=== PATIENT | male | born 1950 | race Caucasian/White ===

== ENCOUNTER 2020-10-03 19:45 | Emergency (ER) | payer OTHER ==
[~2020-10-03] VITALS: Ht 177.8 cm; Wt 73.0 kg
[2020-10-03 20:03] VITALS: BP 121/76
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
[2020-10-03] MEDS ORDERED: LORazepam 0.5 MG TAB PO ONE (20:50)
--- NOTE | 2020-10-03 21:28 | NUR ---
pt refused meds and labs
--- NOTE | 2020-10-03 22:08 | NUR ---
PT REFUSED TO HAVE COVID SWAB DONE
[2020-10-03 23:26] LABS: BARBITURATE, URINE NEGATIVE ng/ml (NEG <=200); BENZODIAZEPINE, URINE NEGATIVE ng/mL (NEG <=200); CANNABINOID, URINE NEGATIVE ng/mL (NEG <=50); COCAINE, URINE NEGATIVE ng/mL (NEG <=300); OPIATE, URINE NEGATIVE ng/mL (NEG <=2000); PHENCYCLIDINE SCREEN,URINE NEGATIVE ng/mL (NEG <=25)
--- NOTE | 2020-10-03 23:39 | NUR ---
Lawson machado in [facility] - 10/04/20 at 0347 by [facility] CALLED TO INFORM THAT PT IS COVID +
--- NOTE | 2020-10-04 00:28 | NUR ---
pt asked again for labs and meds. pt denied and stated "you got piss, use that, id rather ". Addendum: 10/04/20 at 0029 by [facility] pt asked again for labs and meds. pt denied and stated "you got piss, use that, id rather ". reported to vasquez de la garza.
--- NOTE | 2020-10-04 00:30 | NUR ---
PT IN STABLE CONDITION, SITTING IN CHAIR. PT WAS BECOME MORE COMPLIANT WITH CARE. ALL PT NEEDS MET AT THIS TIME.
[2020-10-04 01:55] LABS: BASOPHILS # (AUTO) 0.1 K/uL (0.00-0.22); BASOPHILS % (AUTO) 1.2 % (0.0-2.0); EOSINOPHILS # (AUTO) 0.2 K/uL (0-0.4); EOSINOPHILS % (AUTO) 1.8 % (0.0-4.0); HEMATOCRIT 39.5 % (36-52); LYMPHOCYTES # (AUTO) 0.7 K/uL (2.0-11.5); LYMPHOCYTES % (AUTO) 6.8 % (20.5-51.1); MEAN CORPUSCULAR HEMOGLOBIN 27 pg (27-31); MEAN CORPUSCULAR HGB CONC 33 g/dL (33-37); MEAN CORPUSCULAR VOLUME 82.5 fL (80-94); MONOCYTES # (AUTO) 0.8 K/uL (0.8-1.0); MONOCYTES % (AUTO) 8.1 % (1.7-9.3); NEUTROPHILS # (AUTO) 8.5 K/uL (1.8-7.7); PLATELET COUNT (AUTO) 269 K/uL (140-450); RED BLOOD CELL COUNT(AUTO) 4.78 MIL/uL (4.20-6.10); RED CELL DISTRIBUTION WIDTH 14.6 % (11.6-13.7); WHITE BLOOD COUNT (AUTO) 10.4 K/uL (4.8-10.8)
--- NOTE | 2020-10-04 02:00 | NUR ---
PT IN STABLE CONDITION, EQUAL RISE AND FALL OF CHEST WALL. PT IS SITTING IN CHAIR. PT STATED HE WOULD LIKE A BED, EXPLAINED TO PT THAT SOON WE GET A GURNEY HE WILL BE MOVED.
[2020-10-04 02:16] LABS: ANION GAP 12.6 (8-16); CARBON DIOXIDE 24.6 mmol/L (21-32); CHLORIDE 99 mmol/L (98-107); CREATININE 1.8 mg/dL (0.6-1.3); GLUCOSE 215 mg/dL (74-106); POTASSIUM 4.2 mmol/L (3.5-5.1); SODIUM SERUM 132 mmol/L (136-145); UREA NITROGEN, BLOOD 36 mg/dL (7-18)
[2020-10-04 02:23] LABS: ALBUMIN 4.1 g/dL (3.4-5.0); ASPARTATE AMINOTRANSFERASE 16 U/L (15-37); TOTAL BILIRUBIN 0.6 mg/dL (0.0-1.0)
[2020-10-04 02:24] LABS: ACETAMINOPHEN < 0.5 ug/ml (10-30); SALICYLATE < 2.8 mg/dL (2.8-20.0)
[2020-10-04 02:48] LABS: NEUTROPHILS % (AUTO) 82.1 % (42.2-75.2)
--- NOTE | 2020-10-04 03:45 | NUR ---
PT PLACED IN [address] BED IN FRONT OF NURSES STATION. PT AMBULATED WITH ASSISTANCE. GIVEN A BLANKET AND POSITIONED FOR COMFORT. PT STATED HE IS ABLE TO GET SOME REST NOW.
--- NOTE | 2020-10-04 05:35 | NUR ---
PT TAKEN TO RR VIA W/C WITH ASSISTANCE AND BACK TO BED. BED LOCKED IN LOWEST POSITION. SIDE RAILS X2.
--- NOTE | 2020-10-04 07:25 | NUR ---
REPORT GIVEN TO KRISTIN POSADAS. TRANSFER OF CARE AT THIS TIME.
--- NOTE | 2020-10-04 07:30 | NUR ---
REPORT RECEIVED FROM KRISTIN RIVERA. TRANSFER OF CARE AT THIS TIME.
--- NOTE | 2020-10-04 07:31 | NUR ---
Pt sleeping in [facility] will continue to monitor.
--- NOTE | 2020-10-04 08:01 | NUR ---
Pt refused COVID LORI.
--- NOTE | 2020-10-04 09:51 | NUR ---
[facility] has received packet. Will begin placement.
--- NOTE | 2020-10-04 10:05 | NUR ---
Packet referred to the following facilities: [facility]
--- NOTE | 2020-10-04 11:11 | NUR ---
Pt assisted to bathroom with W/C.
--- NOTE | 2020-10-04 14:30 | NUR ---
Patient to be transferred to [facility] Is being transferred due to SUICIDAL IDEATION, CONTINUATION OF CARE-PSYCH. Receiving facility has accepting physician and available space. ER physician has signed transfer form. Patient or responsible republican has agreed to transfer and signed form. Patient belongings inventoried and will be sent with patient. Copy of nursing notes, lab reports, EKG, Physicians Orders and X-rays to be sent with patient. [facility] ambulance service has been called for transfer. ETA is 1430.
[2020-10-04 15:17] VITALS: BP 136/70
== END 2020-10-04 14:30 ==
LOC: MED 19:45
DX: R45.851 Suicidal ideations (principal); I10 Essential (primary) hypertension; Z86.73 Personal history of transient ischemic attack (TIA), and cerebral infarction without residual deficits; Z98.890 Other specified postprocedural states
CPT/HCPCS: 36415; 80053; 80305; 85025; 87426; 99285; G0480; G0482

== ENCOUNTER 2022-03-04 13:50 | Emergency (ER) | payer OTHER ==
[~2022-03-04] VITALS: Ht 177.8 cm; Wt 73.0 kg
[2022-03-04 13:50] VITALS: BP 214/156
--- NOTE | 2022-03-04 13:50 | NUR ---
[facility] TO ER BED 10
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
--- NOTE | 2022-03-04 14:18 | NUR ---
CALLED AND SPOKE WITH IVELISSE AT [facility] CASE #[id number]
--- NOTE | 2022-03-04 14:24 | NUR ---
CALLED CORPORATE RISK ANALYST, CORPORATE RISK ANALYST WILL RETURN PHONE CALL ONCE THEY HAVE CASE #
--- NOTE | 2022-03-04 14:38 | NUR ---
TIME OF CALLED AT [address] XAVIER
--- NOTE | 2022-03-04 14:42 | NUR ---
SPOKE WITH DEPUTY SMITH FROM [facility]'S OFFICE. WAS INFORMED WILL CALL BACK WITH CASE ID # AFTER SPEAKING WITH FAMILY
--- NOTE | 2022-03-04 15:08 | NUR ---
PER ALIYAUTCarolann SMITH CASE #[id number]. PT HAS BEEN RELEASED BY [facility] AND HAS BEEN CLEARED TO BE RELEASED TO FAMILY
--- NOTE | 2022-03-04 15:33 | NUR ---
LEFT MESSAGE WITH OFFICE STAFF ELIZABETH Baer AT [facility] DR. DAVID GUZMAN ([phone]) INFORMING PATIENT .
--- NOTE | 2022-03-04 16:03 | NUR ---
PER FAMILY WISHES THEY REQUEST TO HAVE BODY TO DONATED TO [facility] [employer]. SPOKE WITH ANDREZ HERNANDEZ FROM [facility] AND WAS INFORMED THEY WILL BE HERE IN ABOUT 2-4 HOURS TO [employer] CHECKER BODY
--- NOTE | 2022-03-04 16:19 | NUR ---
SPOKE WITH ÁNGEL FROM [facility] AND PROVIDED WITH UPDATE
--- NOTE | 2022-03-04 16:55 | NUR ---
SPOKE WITH ÁNGEL AT [facility]. [facility] IS NO LONGER PERSUING TISSUE DONATION.
--- NOTE | 2022-03-04 17:10 | NUR ---
MERARI WASHINGTON FROM [facility] BEDSIDE TO OPERATIONS TECH BODY. PAPERWORK SIGNED AND BODY RELEASED
== END 2022-03-04 13:57 ==
LOC: MED 13:50
DX: I46.9 Cardiac arrest, cause unspecified (principal); E78.5 Hyperlipidemia, unspecified; I10 Essential (primary) hypertension; E11.9 Type 2 diabetes mellitus without complications; Z86.73 Personal history of transient ischemic attack (TIA), and cerebral infarction without residual deficits; Z98.890 Other specified postprocedural states
CPT/HCPCS: 31500; 92950; 99285